=== PATIENT | male | born 1990 | race Caucasian/White ===

== ENCOUNTER 2025-01-31 09:17 | Emergency (ER) | payer OTHER, BC ==
[~2025-01-31] VITALS: Ht 177.8 cm; Wt 75.0 kg
[2025-01-31] MEDS ORDERED: ONDANSETRON 4 MG TAB ODT SL ONE (09:30)
[2025-01-31] MEDS ORDERED: HYDROmorphone HCL 1 MG/ML SYR IM ONE (09:30)
[2025-01-31] MEDS ORDERED: PERCOCET 5-3251 EACH PO (10:23)
[2025-01-31] MEDS ORDERED: ONDANSETRON ODT8 MG PO (10:23)
[2025-01-31 10:34] VITALS: BP 106/75
== END 2025-01-31 10:37 | disposition home or self-care (01) ==
LOC: ED 09:17
DX: S42.021A Displaced fracture of shaft of right clavicle, initial encounter for closed fracture (principal); V29.99XA Rider (driver) (passenger) of other motorcycle injured in unspecified traffic accident, initial encounter; Z79.899 Other long term (current) drug therapy
CPT/HCPCS: 73000; 96372; 99283; A9270; J1171

== ENCOUNTER 2025-02-06 22:11 | Emergency (ER) | payer BC, OTHER ==
[~2025-02-06] VITALS: Ht 177.8 cm; Wt 74.9 kg
[~2025-02-06 22:11] MED LIST: ONDANSETRON ODT8 MG PO; PERCOCET 5-3251 EACH PO
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
[2025-02-06] MEDS ORDERED: CYCLOBENZAPRINE HCL 10 MG HOME.PACK PO ONE (23:15)
[2025-02-06] MEDS ORDERED: OXYCODONE/ACETAMINOPHEN 1 TAB HOME.PACK PO ONE (23:15)
[2025-02-06] MEDS ORDERED: CYCLOBENZAPRINE10 MG PO (23:22)
[2025-02-06] MEDS ORDERED: PERCOCET 7.5-31 EACH PO (23:22)
[2025-02-06] MEDS ORDERED: OXYCODONE HCL 5 MG TAB PO ONE (23:30)
[2025-02-06] MEDS ORDERED: KETOROLAC TROMETHAMINE 60 MG/2 ML VIAL IM ONE (23:45)
[2025-02-07 00:30] VITALS: BP 142/101
[2025-02-09] MEDS ORDERED: OMEPRAZOLE20 MG PO (17:01)
== END 2025-02-07 00:33 | disposition home or self-care (01) ==
LOC: ED 22:11
DX: S42.021A Displaced fracture of shaft of right clavicle, initial encounter for closed fracture (principal); X58.XXXA Exposure to other specified factors, initial encounter; Z88.8 Allergy status to other drugs, medicaments and biological substances
CPT/HCPCS: 96372; 99282; A9270; J1885

== ENCOUNTER 2025-02-10 05:55 | Day surgery (SDC) | payer BC, OTHER ==
[~2025-02-10] VITALS: Ht 177.8 cm; Wt 74.9 kg
[~2025-02-10 05:55] MED LIST changes: +CYCLOBENZAPRINE10 MG PO; +LACTATED RINGER'S 1,000 ML IV SCH; +OMEPRAZOLE20 MG PO; +PERCOCET 7.5-31 EACH PO
[2025-02-10 06:16] VITALS: BP 135/86
[2025-02-10 06:37] LABS: BASOPHILS 0.5 % (0.2-1.2); BASOPHILS, ABSOLUTE 0.02 K/uL (0.01-0.08); EOSINOPHILS 5.1 % (0.8-7.0); EOSINOPHILS, ABSOLUTE 0.21 K/uL (0.04-0.54); LYMPHOCYTES 25.2 % (21.8-53.1); MCH 29.1 PG (25.7-32.2); MCHC 34.5 g/dL (32.3-36.5); MCV 84.3 fL (79.0-92.2); MONOCYTES 8.8 % (5.3-12.2); MONOCYTES, ABSOLUTE 0.36 K/uL (0.30-0.82); NEUTROPHILS 60.2 % (34.0-67.9); NEUTROPHILS, ABSOLUTE 2.46 K/uL (1.78-5.38); RBC 4.91 M/uL (4.63-6.08)
[2025-02-10 06:59] LABS: ALT (SGPT) 81.0 U/L (14-59); AST (SGOT) 104.0 U/L (15-37); GLOMERULAR FILTRATION RATE,EST 97.0 mL/min (>60); PROTEIN, TOTAL 7.0 g/dL (6.4-8.2); UREA NITROGEN 18.0 mg/dL (7-18)
[2025-02-10] MEDS ORDERED: IBLOOD GLUCOSE TEST STRIP 1 EA TEST VI PRN ×2 (07:00→10:00)
[2025-02-10] MEDS ORDERED: TRANEXAMIC ACID IN NACL,ISO-OS 1,000 MG/100 ML PIGGYBACK IV SCH (07:00)
[2025-02-10] MEDS ORDERED: LIDOCAINE HCL 1% 5 ML SDV INJ ONE (07:00)
[2025-02-10] MEDS ORDERED: CEFAZOLIN SODIUM 2 GM/20 ML SYR IV SCH (07:00)
[2025-02-10] MEDS ORDERED: HYDROCODONE/ACETA 7.5/325 TAB PO PRN (08:30)
[2025-02-10] MEDS ORDERED: DICLOFENAC SOD 75 MG TABEC PO SCH (09:00)
[2025-02-10] MEDS ORDERED: fentaNYL citrate 100 MCG/2 ML VIAL ONE ×2 (09:02→09:26)
[2025-02-10] MEDS ORDERED: ROCURONIUM BROMIDE 50 MG/5 ML SYR ONE ×2 (09:02→09:49)
[2025-02-10] MEDS ORDERED: TRANEXAMIC ACID 1,000 MG/10 ML AMP ONE ×2 (09:34→09:35)
[2025-02-10] MEDS ORDERED: SUGAMMADEX SODIUM 200 MG/2 ML ML ONE ×2 (09:58→10:18)
[2025-02-10] MEDS ORDERED: NALOXONE HCL 0.4 MG SYR IV PRN (10:00)
[2025-02-10] MEDS ORDERED: METOCLOPRAMIDE HCL 10 MG/2 ML SDV IV PRN (10:00)
[2025-02-10] MEDS ORDERED: HYDROmorphone HCL 1 MG/ML SYR IV PRN (10:00)
[2025-02-10] MEDS ORDERED: fentaNYL citrate 50 MCG/ML SDV IV PRN (10:00)
[2025-02-10] MEDS ORDERED: DICLOFENAC SODI75 MG PO (10:13)
[2025-02-10] MEDS ORDERED: HYDROCODON-ACE1 EA11 PO (10:14)
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
[2025-02-10 11:19] VITALS: BP 126/75
--- NOTE | 2025-02-10 11:23 | NUR ---
1123- BEDSIDE REPORT RECIEVED. VITALS AND SURGICAL SITE ARE NOTED. PT IS AWAKE AND TALKING WITH NURSE AND FAMILY MEMBER. DENIES PAIN AND N/V. CRYOCUFF IN PLACE, ARM IN SLING. CALL LIGHT IN REACH, SNACKS AND FLUIDS PROVIDED. NO FURTHER NEEDS AT THIS TIME.
[2025-02-10 12:11] VITALS: BP 125/75
--- NOTE | 2025-02-10 12:39 | NUR ---
1145- PT VOIDED 300 ML 1231- DISCHARGE INFO REVIEWED WITH PT AND FAMILY AND BOTH VERBALLY ACKNOWLEDGED UNDERSTANDING. PT ABLE TO DRESS SELF WITH ASSISTANCE FROM . CRYO CUFF ICE CHEST DUMPED OUT PER PT REQUEST. DENIES N/V AND PAIN. PT ABLE TO EAT AND DRINK WITHOUT ISSUE. VITALS NOTED. PT TAKEN OUT OF HOSPITAL VIA WHEELCHAIR AND TRANSFERRED TO PRIVATE AUTO WITHOUT NEED FOR ASSISTANCE OR ISSUE.
[2025-02-10] MEDS ORDERED: SEVOFLURANE 250 ML BTL INH ONE (14:44)
--- NOTE | 2025-02-10 16:00 | EKG ---
[facility] [address] [facility] [place], [place] [address] Signed Sinus bradycardia Early repolarization Otherwise normal ECG No previous ECGs available Confirmed by EMERSON HUSTON MD ([id number]) on 02/10/2025 4:00:21 PM Electronically Signed By: EMERSON HUSTON 02/10/25 1600 PATIENT NAME: KRISHANJENNIFERSHAKIRA HERRERA Electrocardiogram DATE OF : 89 PHYSICIAN: EMERSON HUSTON REPORT #: [id number] REPORT IS CONFIDENTIAL AND NOT TO BE RELEASED WITHOUT AUTHORIZATION
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
== END 2025-02-10 12:31 | disposition home or self-care (01) ==
LOC: DS 05:55
PROVIDERS: ATTEND Specialist
PROC: 0PS904Z Reposition Right Clavicle with Internal Fixation Device, Open Approach (ICD-10-PCS; principal; 2025-02-10 09:30)
DX: S42.021A Displaced fracture of shaft of right clavicle, initial encounter for closed fracture (principal); Z88.5 Allergy status to narcotic agent; X58.XXXA Exposure to other specified factors, initial encounter
CPT/HCPCS: 00450; 36415; 64415; 73000; 80053; 85025; 93005; 93010; C1713; J0690; J3010; J3490; J7121

== ENCOUNTER 2025-05-31 07:15 | Day surgery (SDC) | payer OTHER ==
[~2025-05-31] VITALS: Ht 177.8 cm; Wt 77.0 kg
[~2025-05-31 07:15] MED LIST changes: +DICLOFENAC SODI75 MG PO; +HYDROCODON-ACE1 EA11 PO; +IBLOOD GLUCOSE TEST STRIP 1 EA TEST VI PRN; +LIDOCAINE HCL 1% 5 ML SDV INJ ONE
[2025-05-31 07:27] VITALS: BP 116/67
[2025-05-31] MEDS ORDERED: AMOX TR-K CLV1 EAC1 PO (07:28)
[2025-05-31] MEDS ORDERED: LIDOCAINE HCL 2% 5 ML SDV ONE (08:29)
--- NOTE | 2025-05-31 08:53 | NUR ---
05/31/25 0853 Alicia Streeter 0846 PT ARRIVED TO PACU ON 4L VIA NC, PT ASLEEP AND RESP EVEN AND UNLABORED. 0851 PT WAKES AND NC REMOVED. PT REORIENTED TO PACU AND DENIES CONCERNS.
[2025-05-31 09:06] VITALS: BP 127/98
== END 2025-05-31 09:15 | disposition home or self-care (01) ==
LOC: OPS 07:15 → DS 07:15 → OPS 08:30 → DS 08:30 → OPS 09:15 → DS 09:45 → OPS 11:00
PROVIDERS: ATTEND Surgery
PROC: 0DB68ZX Excision of Stomach, Via Natural or Artificial Opening Endoscopic, Diagnostic (ICD-10-PCS; principal; 2025-05-31 09:30)
DX: K29.70 Gastritis, unspecified, without bleeding (principal); F10.10 Alcohol abuse, uncomplicated; Z88.8 Allergy status to other drugs, medicaments and biological substances
CPT/HCPCS: 00731; 88305; J2003; J2704; J7121